=== PATIENT | female | born 1970 | race American Indian/Alaskan Native ===

== ENCOUNTER 2017-10-26 14:58 | Outpatient (CLI) | payer MEDICAID ==
--- NOTE | 2017-10-26 16:05 | XRay Report ---
XRAY LEFT SHOULDER THREE VIEWS: 10/26/17 14:58:00 CLINICAL: Left shoulder pain. FINDINGS: Normal glenohumeral alignment. No fracture or dislocation. The acromioclavicular joint is normal. However, downsloping of the acromion with a subacromial osteophyte narrows the subacromial space. Irregularity and both radiolucent and sclerotic changes in the humerus at the greater tuberosity. IMPRESSION: Downsloping acromion with a subacromial osteophyte narrowing the subacromial space. Suspect rotator cuff impingement and rotator cuff disease.
--- NOTE | 2017-10-26 16:07 | XRay Report ---
THORACIC SPINE THREE VIEWS: 10/26/17 14:58:00 CLINICAL: Back pain. FINDINGS: Mild lower thoracic levoscoliosis. Normal vertebral body alignment. Mild anterior wedging of T6 with no fracture lines. The upper levels of the thoracic spine are not well-seen on the lateral view because of the arms. Minimal degenerative change in the spine. IMPRESSION: Age-indeterminate mild anterior wedge compression fracture of T6. Mild degenerative change. Lower thoracic levoscoliosis.
--- NOTE | 2017-10-26 16:14 | XRay Report ---
XRAY LUMBAR SPINE WITH FLEXION AND EXTENSION AND OBLIQUES 6 VIEWS: 10/26/17 14:58:00 CLINICAL: Low back pain. FINDINGS: Mild levoscoliosis centered at L3. Grade 1 L4-5 spondylolisthesis is maintained in all positions. No pars defect. The rest of the bodies are normal alignment. The disc spaces are normal. No fracture. Moderate facet joint sclerosis at all levels. No neural foraminal stenosis. The pedicles are intact. Minimal osteophytes. IMPRESSION: Mild scoliosis and grade I L4-5 spondylolisthesis with no pars defect. No instability with flexion and extension.
== END 2017-10-26 14:59 | disposition home or self-care (01) ==
LOC: SPVIMAG 14:58
PROVIDERS: ATTEND Physical Medicine & Rehabilitation
DX: M48.54XA Collapsed vertebra, not elsewhere classified, thoracic region, initial encounter for fracture (principal); M47.894 Other spondylosis, thoracic region; M43.16 Spondylolisthesis, lumbar region; M41.85 Other forms of scoliosis, thoracolumbar region; M25.712 Osteophyte, left shoulder
CPT/HCPCS: 72070; 72114

== ENCOUNTER 2021-12-17 16:03 | Emergency (ER) | payer MEDICAID ==
[2021-12-17 16:14] VITALS: BP 146/84
== END 2021-12-17 20:30 | disposition left against medical advice (07) ==
LOC: ED 16:03
DX: R11.0 Nausea (principal); Z53.21 Procedure and treatment not carried out due to patient leaving prior to being seen by health care provider